=== PATIENT | female | born 1995 | race Two or more races ===

== ENCOUNTER 2017-04-01 07:45 | Emergency (ER) | payer OTHER ==
[~2017-04-01] VITALS: Ht 167.6 cm; Wt 105.2 kg
[~2017-04-01 07:45] MED LIST: BENADRYL50 MG PO; NO HOME MEDICATIONS; NOHOMEMEDS; ROBITUSSIN AC,T10 ML PO; ZOFRAN ODT4 MG PO
[2017-04-01 08:53] LABS: HEMATOCRIT 41.6 % (36.0-46.0); MCH 30.7 PG (29.0-34.0); MCHC 33.4 G/DL (30.0-36.0); MCV 91.8 FL (83-99); MEAN PLAT.VOLUME 8.3 uM^3 (9.5-12.4); PLATELET COUNT 338 K/uL (156-360); RBC DIS.WIDTH-CV 11.6 % (11.8-14.6); RBC DIS.WIDTH-SD 39.4 % (39-53); RED BLOOD COUNT 4.53 M/uL (3.80-5.20); WHITE BLOOD COUNT 13.7 K/uL (4.1-10.2)
[2017-04-01 09:08] LABS: CHLORIDE 113 mEq/L (99-109); POTASSIUM 4.2 mEq/L (3.7-5.4); SODIUM 139 mEq/L (136-147)
[2017-04-01 09:10] LABS: GLUCOSE 99 mg/dL (70-99)
[2017-04-01 09:11] LABS: ANION GAP 6 MEQ/L (2-14)
[2017-04-01 09:14] LABS: GFR ESTIMATE (CALCULATED) > 59 mL/min/; UREA NITROGEN (BUN) 9 mg/dL (9-23)
[2017-04-01 13:33] VITALS: BP 93/61
== END 2017-04-01 13:33 | disposition home or self-care (01) ==
LOC: EME 07:45
PROVIDERS: Emergency Medicine
PROC: 0H98XZZ Drainage of Buttock Skin, External Approach (ICD-10-PCS; principal; 2017-04-01)
DX: L02.31 Cutaneous abscess of buttock (principal); A49.02 Methicillin resistant Staphylococcus aureus infection, unspecified site; F17.200 Nicotine dependence, unspecified, uncomplicated
CPT/HCPCS: 74177; 80048; 83605; 85027; J2270; J2405